=== PATIENT | female | born 1955 | race Caucasian/White ===

== ENCOUNTER 2023-06-15 11:16 | Emergency (ER) | payer MEDICARE, OTHER ==
[~2023-06-15] VITALS: Ht 160 cm; Wt 72.3 kg
[~2023-06-15 11:16] MED LIST: ATORVASTATIN CA10 MG PO; BACLOFEN10 MG PO; BUDESONIDE EC3 MG PO; BUDESONIDE PO; BYSTOLIC10 MG PO; CEFDINIR300 MG PO; CLINDAMYCIN HC300 MG PO; CLONAZEPAM0.5 MG PO; ESCITALOPRAM OX20 MG PO; FISH OIL 1,0001 EAC1 PO; FUROSEMIDE40 MG PO; HYDROCODON-ACE1 EA11 PO; INDERAL LA60 MG PO; K DUR10 MEQ PO; LEVOXYL100 MCG PO; LORAZEPAM1 MG PO; LUNESTA3 MG PO; MULTIVITAMIN PO; NIACIN500 M2 PO; OMEPRAZOLE20 MG PO; ONDANSETRON ODT4 MG PO; PERCOCET 10-321 EACH PO; PLAVIX75 MG PO; PYRIDIUM100 MG PO; VITAMIN D5000 UNIT PO; Z.0.ALIGN4 MG; Z.0.APRISO0.375 GM PO; Z.0.ATENOLOL25 MG PO; Z.0.CHLORDIAZEPOXI1 PO; Z.0.CLONIDINE HCL0.1 PO; Z.0.LEXAPRO10 MG PO; Z.0.OMEPRAZOLE40 MG PO; Z.0.PHENERGAN25 M1 PO; Z.0.SYNTHROID25 MCG PO; Z.1.HYDROCHLOROTH12. PO; [UNRECOGNIZED DRUG - OTHER] PO; [UNRECOGNIZED DRUG - OTHER] PO; [UNRECOGNIZED DRUG - OTHER] PO; amlodipine PO; lorazepam
[2023-06-15] MEDS ORDERED: CLOPIDOGREL75 MG PO (11:41)
[2023-06-15] MEDS ORDERED: LEVOTHYROXINE112 MCG PO (11:41)
[2023-06-15] MEDS ORDERED: ATENOLOL50 MG PO (11:41)
[2023-06-15 14:28] VITALS: O2SAT 98
== END 2023-06-15 14:29 | disposition home or self-care (01) ==
LOC: FSED 11:30
DX: S83.8X1A Sprain of other specified parts of right knee, initial encounter (principal); W10.8XXA Fall (on) (from) other stairs and steps, initial encounter; Y93.01 Activity, walking, marching and hiking; Y92.89 Other specified places as the place of occurrence of the external cause; I73.9 Peripheral vascular disease, unspecified; I10 Essential (primary) hypertension; E78.5 Hyperlipidemia, unspecified; E03.9 Hypothyroidism, unspecified; I25.10 Atherosclerotic heart disease of native coronary artery without angina pectoris; F41.9 Anxiety disorder, unspecified; Z87.19 Personal history of other diseases of the digestive system
CPT/HCPCS: 99283

== ENCOUNTER 2023-08-10 07:38 | Outpatient (RCR) | payer MEDICARE, OTHER ==
[~2023-08-10 07:38] MED LIST changes: +AMOXICILLIN500 MG PO; +ATENOLOL50 MG PO; +BROMFED DM COU118 ML PO; +CLOPIDOGREL75 MG PO; +LEVOTHYROXINE112 MCG PO
== END 2023-09-08 ==
LOC: PT 07:38
PROVIDERS: ATTEND Physician Assistant
DX: S92.121D Displaced fracture of body of right talus, subsequent encounter for fracture with routine healing (principal); M25.561 Pain in right knee; M62.81 Muscle weakness (generalized); R26.89 Other abnormalities of gait and mobility

== ENCOUNTER 2025-01-20 12:05 | Emergency (ER) | payer MEDICARE, OTHER ==
[~2025-01-20] VITALS: Ht 160 cm; Wt 76.3 kg
[2025-01-20] MEDS ORDERED: SYNTHROID50 MCG PO (12:41)
[2025-01-20] MEDS ORDERED: LIOTHYRONINE SO5 MCG PO (12:41)
[2025-01-20] MEDS ORDERED: CORICIDIN HBP1 EAC8 PO (12:58)
[2025-01-20] MEDS ORDERED: VENTOLIN HFA18 GM INH (12:59)
[2025-01-20 13:15] VITALS: PULSE 75; RESP 18; TEMP 98.1; O2SAT 96
== END 2025-01-20 13:35 | disposition home or self-care (01) ==
LOC: FSED 12:12
DX: R05.9 Cough, unspecified (principal); U07.1 COVID-19; I10 Essential (primary) hypertension; E03.9 Hypothyroidism, unspecified; E78.5 Hyperlipidemia, unspecified; M54.9 Dorsalgia, unspecified; G89.29 Other chronic pain; K21.9 Gastro-esophageal reflux disease without esophagitis; I25.10 Atherosclerotic heart disease of native coronary artery without angina pectoris; F41.9 Anxiety disorder, unspecified; F32.A Depression, unspecified; Z87.19 Personal history of other diseases of the digestive system
CPT/HCPCS: 0223U; 71046; 81003; 83518; 87400; 99283